=== PATIENT | female | born 1960 | race Caucasian/White ===

== ENCOUNTER 2019-06-05 13:47 | Inpatient (IN) ==
[2019-06-05 14:27] LABS: Bilirubin,Urine Negative (Negative); Blood,Urine Negative (Negative); Clarity,Urine Clear (Clear); Color,Urine Yellow (Yellow); Glucose,Urine (UA) Normal (Normal); Ketones,Urine Negative (Negative); Leukocyte Esterase,Urine Negative (Negative); Nitrite,Urine Negative (Negative); PH,Urine 7.5 pH Units (5.0-8.0); Protein,Urine Negative (Neg-Trace); Specific Gravity,Urine 1.009 (1.010-1.025); Urobilinogen,Urine Normal (Normal)
[2019-06-05 14:29] LABS: Basophils # 0.1 K/mcL (0.0-0.2); Basophils % 0.9 %; Eosinophils # 0.1 K/mcL (0.0-0.6); Eosinophils % 1.2 %; Hematocrit 44.1 % (35.3-44.9); Hemoglobin 15.7 g/dL (11.5-15.4); Immature Granulocytes % 0.3 % (0-4); Lymphocytes # 2.9 K/mcL (0.6-4.6); Lymphocytes % 31.6 %; Mean Corpuscular HGB Conc 35.6 g/dL (31.6-35.5); Mean Corpuscular Hemoglobin 31.2 pg (28.0-33.3); Mean Corpuscular Volume 87.7 fL (83.0-100.0); Mean Platelet Volume 8.8 fL (9.4-12.4); Monocytes # 0.6 K/mcL (0.0-1.3); Monocytes % 7.1 %; Neutrophils # 5.3 K/mcL (1.6-8.9); Platelet Count 369 K/mcL (140-400); Red Blood Count 5.03 M/mcL (3.82-4.97); Red Cell Distribution Width 11.9 % (11.5-14.5); Segmented Neutrophils % 58.9 %
[2019-06-05 14:42] LABS: Amphetamine Screen,Urine Negative ng/mL (Cutoff=1000); Barbiturate Screen,Urine Negative ng/mL (Cutoff=200); Benzodiazepines Screen,Urine Negative ng/mL (Cutoff=200); Cannabinoid Screen,Urine Negative ng/mL (Cutoff = 50); Cocaine Screen,Urine Negative ng/mL (Cutoff= 300); Opiate Screen,Urine Negative ng/mL (Cutoff=300); Phencyclidine Screen,Urine Negative ng/mL (Cutoff=25)
[2019-06-05 14:58] LABS: Acetaminophen < 10 mcg/mL (10-20); BUN/Creatinine Ratio 16 (6-26); Blood Urea Nitrogen 10 mg/dL (6-20); Calcium 9.2 mg/dL (8.6-10.3); Carbon Dioxide 26 mEq/L (23-29); Chloride 104 mEq/L (98-107); Ethanol < 10 mg/dL (Less than 10); Glucose 113 mg/dL (70-105); Osmolality,Calculated 290 (280-300); Potassium 3.9 mEq/L (3.5-5.1); Salicylate < 2.5 mg/dL (15.0-30.0); Sodium 140 mEq/L (136-145); eGFR For African Americans > 60 (> 60); eGFR For Non-African Americans > 60 (> 60)
[2019-06-05] MEDS ORDERED: Naloxone 0.4 MG/ML INJ IVP PRN (15:31)
[2019-06-06 02:42] LABS: BUN/Creatinine Ratio 18 (6-26); Blood Urea Nitrogen 10 mg/dL (6-20); Calcium 8.8 mg/dL (8.6-10.3); Carbon Dioxide 27 mEq/L (23-29); Chloride 109 mEq/L (98-107); Glucose 93 mg/dL (70-105); Osmolality,Calculated 293 (280-300); Potassium 3.7 mEq/L (3.5-5.1); Sodium 142 mEq/L (136-145); eGFR For African Americans > 60 (> 60); eGFR For Non-African Americans > 60 (> 60)
[2019-06-06 02:46] LABS: Hematocrit 43.3 % (35.3-44.9); Hemoglobin 14.4 g/dL (11.5-15.4); Mean Corpuscular HGB Conc 33.3 g/dL (31.6-35.5); Mean Corpuscular Hemoglobin 30.4 pg (28.0-33.3); Mean Corpuscular Volume 91.5 fL (83.0-100.0); Mean Platelet Volume 8.8 fL (9.4-12.4); Platelet Count 302 K/mcL (140-400); Red Blood Count 4.73 M/mcL (3.82-4.97); Red Cell Distribution Width 11.9 % (11.5-14.5); White Blood Count 10.2 K/mcL (4.3-11.1)
[2019-06-07 07:42] VITALS: BP 137/68
[2019-06-08] MEDS ORDERED: NON-FORMULARY MEDICATION 1 EACH EACH (Ezetimibe 10 MG) PO SCH (09:00)
== END 2019-06-07 11:18 | DRG 918 ==
LOC: 3BNU 13:47 → EMEROOARM 13:47 → 3BNU 17:13
PROVIDERS: ADMIT Student in an Organized Health Care Education/Training Program; ATTEND Student in an Organized Health Care Education/Training Program

== ENCOUNTER 2019-06-07 11:05 | Inpatient (IN) ==
[2019-06-07] MEDS ORDERED: Acetaminophen 325 MG TABLET PO PRN (11:27)
[2019-06-07] MEDS ORDERED: Haloperidol Lactate 5 MG/ML VIAL IM PRN (11:27)
[2019-06-07] MEDS ORDERED: Mag Hydrox/Al Hydrox/Simeth 30 ML UDC PO PRN (11:27)
[2019-06-07] MEDS ORDERED: MOM Conc 10 ML UD.LIQ PO PRN (11:27)
[2019-06-07] MEDS ORDERED: traZODone 50 MG TABLET PO PRN (11:27)
[2019-06-07] MEDS ORDERED: NON-FORMULARY MEDICATION 1 EACH EACH (Ezetimibe 10 MG) PO SCH (12:30)
[2019-06-07] MEDS: Nicotine 14 MG PATCH.TD24 TD SCH (13:40)
[2019-06-08] MEDS: hydrOXYzine pamoate 25 MG CAPSULE PO PRN (20:43)
[2019-06-08] MEDS: Nicotine 14 MG PATCH.TD24 TD SCH (21:04)
[2019-06-09] MEDS: Nicotine 14 MG PATCH.TD24 TD SCH (09:04)
[2019-06-09] MEDS: hydrOXYzine pamoate 25 MG CAPSULE PO PRN (21:28)
[2019-06-10] MEDS: Nicotine 14 MG PATCH.TD24 TD SCH (08:48)
[2019-06-11] MEDS: Nicotine 14 MG PATCH.TD24 TD SCH (09:23)
[2019-06-11] MEDS: BuPROPion XL (24 HR) 150 MG TABLET PO SCH (10:52)
[2019-06-11] MEDS: hydrOXYzine pamoate 25 MG CAPSULE PO PRN (21:02)
[2019-06-12] MEDS: Nicotine 14 MG PATCH.TD24 TD SCH (08:42)
[2019-06-12] MEDS: BuPROPion XL (24 HR) 150 MG TABLET PO SCH (08:42)
[2019-06-12 09:39] VITALS: BP 123/71
== END 2019-06-12 11:25 | disposition home or self-care (01) | DRG 885 ==
LOC: 1ANU 11:05
PROVIDERS: ADMIT Psychiatry & Neurology Psychiatry; ATTEND Psychiatry & Neurology Psychiatry